=== PATIENT | male | born 1990 | race Hispanic/Latino ===

== ENCOUNTER 2019-12-26 05:16 | Emergency (ER) | payer OTHER | END 2019-12-26 06:26 | disposition home or self-care (01) | LOC: EDH 05:16 | DX: S63.296A Dislocation of distal interphalangeal joint of right little finger, initial encounter (principal); Z72.0 Tobacco use; W22.8XXA Striking against or struck by other objects, initial encounter; Y93.89 Activity, other specified; Y92.89 Other specified places as the place of occurrence of the external cause; Y99.8 Other external cause status | CPT/HCPCS: 26770; 73130 ==